=== PATIENT | female | born 1960 | race Caucasian/White ===

== ENCOUNTER 2024-09-06 20:27 | Emergency (ER) | payer BC ==
[2024-09-06 22:18] LABS: ALT (SGPT) 43 U/L (8-55); AST (SGOT) 29 U/L (5-34); Albumin 4.4 g/dL (3.4-4.8); Alkaline Phosphatase 97 U/L (40-110); Anion Gap 15 mmol/L (10-20); BUN (Urea Nitrogen) 13 mg/dL (9.8-20.1); Bilirubin, Total 1.1 mg/dL (0.2-1.2); Calc. Creatinine Clearance 0 mL/min (70-130); Calcium 10.7 mg/dL (7.8-10.44); Carbon Dioxide 24 mmol/L (23-31); Chloride 102 mmol/L (98-107); Estimated GFR 85; Globulin 2.6 g/dL (2.4-3.5); Glucose 156 mg/dL (80-115); Potassium 3.4 mmol/L (3.5-5.1); Sodium 138 mmol/L (136-145)
[2024-09-06] MEDS ORDERED: Potassium Chloride 20 MEQ TAB ONE (22:24)
[2024-09-06 22:25] LABS: Troponin I Less than 0.010 ng/mL (< 0.028)
== END 2024-09-06 22:40 ==
LOC: CSHERS 20:27
DX: I10 Essential (primary) hypertension (principal); E78.5 Hyperlipidemia, unspecified; Z79.899 Other long term (current) drug therapy
CPT/HCPCS: 36415; 80053; 84484; 99283